=== PATIENT | female | born 1995 | race Caucasian/White ===

== ENCOUNTER → 2020-05-12 16:09 | Outpatient (BNVA) | payer BC, SELFPAY | PROVIDERS: Visit Provider Nurse Practitioner Family | DX: R30.0 Dysuria (principal) | CPT/HCPCS: 81000 ==

== ENCOUNTER → 2020-07-08 18:33 | Outpatient (BNVA) | payer BC, SELFPAY | PROVIDERS: Visit Provider Nurse Practitioner Family | DX: N89.8 Other specified noninflammatory disorders of vagina (principal) | CPT/HCPCS: 87491; 87591; 87661 ==

== ENCOUNTER → 2021-12-02 15:11 | Outpatient (BNVA) | payer BC, SELFPAY | PROVIDERS: PCP Nurse Practitioner Family; Visit Provider Nurse Practitioner | DX: N39.0 Urinary tract infection, site not specified (principal) | CPT/HCPCS: 81000 ==

== ENCOUNTER → 2024-06-06 14:20 | Outpatient (BNVA) | payer OTHER, SELFPAY | PROVIDERS: PCP Family Medicine; Visit Provider Nurse Practitioner Women's Health | DX: N91.2 Amenorrhea, unspecified (principal) | CPT/HCPCS: 81025 ==

== ENCOUNTER → 2024-06-27 08:33 | Outpatient (BNVA) | payer OTHER, SELFPAY | PROVIDERS: PCP Family Medicine; Visit Provider Nurse Practitioner Women's Health | DX: Z36.87 Encounter for antenatal screening for uncertain dates (principal); Z3A.13 13 weeks gestation of pregnancy | CPT/HCPCS: 76801; 84315; 85025 ==

== ENCOUNTER → 2024-07-20 09:34 | Outpatient (BNVA) | payer OTHER, SELFPAY | PROVIDERS: PCP Family Medicine; Visit Provider Obstetrics & Gynecology | DX: Z34.80 Encounter for supervision of other normal pregnancy, unspecified trimester (principal); Z3A.00 Weeks of gestation of pregnancy not specified | CPT/HCPCS: 84315; 87491; 87591; 87624 ==

== ENCOUNTER → 2024-08-22 15:26 | Outpatient (BNVA) | payer OTHER, SELFPAY | PROVIDERS: PCP Family Medicine; Visit Provider Obstetrics & Gynecology | DX: Z34.92 Encounter for supervision of normal pregnancy, unspecified, second trimester (principal); Z3A.20 20 weeks gestation of pregnancy | CPT/HCPCS: 76805 ==

== ENCOUNTER → 2024-09-19 08:37 | Outpatient (BNVA) | payer OTHER, SELFPAY | PROVIDERS: PCP Family Medicine; Visit Provider Obstetrics & Gynecology | DX: Z34.80 Encounter for supervision of other normal pregnancy, unspecified trimester (principal) | CPT/HCPCS: 76816; 82950; 84315; 85025; 86850; 86900 ==

== ENCOUNTER → 2024-10-12 08:14 | Outpatient (BNVA) | payer OTHER, SELFPAY | PROVIDERS: PCP Family Medicine; Visit Provider Obstetrics & Gynecology | DX: Z34.80 Encounter for supervision of other normal pregnancy, unspecified trimester (principal) | CPT/HCPCS: 82951; 82952; 84315; 85025 ==

== ENCOUNTER → 2024-10-26 08:28 | Outpatient (BNVA) | payer OTHER, SELFPAY | PROVIDERS: PCP Family Medicine; Visit Provider Obstetrics & Gynecology | DX: Z34.80 Encounter for supervision of other normal pregnancy, unspecified trimester (principal) | CPT/HCPCS: 84315 ==

== ENCOUNTER → 2024-11-09 08:44 | Outpatient (BNVA) | payer OTHER, SELFPAY | PROVIDERS: PCP Family Medicine; Visit Provider Obstetrics & Gynecology | DX: Z34.80 Encounter for supervision of other normal pregnancy, unspecified trimester (principal); Z34.90 Encounter for supervision of normal pregnancy, unspecified, unspecified trimester; R89.4 Abnormal immunological findings in specimens from other organs, systems and tissues; G43.009 Migraine without aura, not intractable, without status migrainosus | CPT/HCPCS: 84315 ==

== ENCOUNTER → 2024-11-28 12:16 | Outpatient (BNVA) | payer OTHER, SELFPAY | PROVIDERS: PCP Family Medicine; Visit Provider Nurse Practitioner Women's Health | DX: Z34.80 Encounter for supervision of other normal pregnancy, unspecified trimester (principal) | CPT/HCPCS: 76816; 84315 ==

== ENCOUNTER → 2024-12-12 07:59 | Outpatient (BNVA) | payer OTHER, SELFPAY | PROVIDERS: PCP Family Medicine; Visit Provider Nurse Practitioner Women's Health | DX: Z34.80 Encounter for supervision of other normal pregnancy, unspecified trimester (principal) | CPT/HCPCS: 84315; 87081 ==

== ENCOUNTER 2024-12-19 09:00 | Outpatient (CLI) | payer OTHER, SELFPAY | END 2024-12-19 10:00 | disposition home or self-care (01) | LOC: OPS 01-24 16:54 | PROVIDERS: PCP Family Medicine; Visit Provider Obstetrics & Gynecology | DX: Z34.80 Encounter for supervision of other normal pregnancy, unspecified trimester (principal) | CPT/HCPCS: 84315 ==

== ENCOUNTER → 2024-12-26 07:53 | Outpatient (BNVA) | payer OTHER, SELFPAY | PROVIDERS: PCP Family Medicine; Visit Provider Nurse Practitioner Women's Health | DX: Z34.80 Encounter for supervision of other normal pregnancy, unspecified trimester (principal) | CPT/HCPCS: 84315 ==

== ENCOUNTER → 2025-01-02 10:53 | Outpatient (BNVA) | payer OTHER, SELFPAY | PROVIDERS: PCP Family Medicine; Visit Provider Nurse Practitioner Women's Health | DX: Z34.80 Encounter for supervision of other normal pregnancy, unspecified trimester (principal); R89.4 Abnormal immunological findings in specimens from other organs, systems and tissues; G43.009 Migraine without aura, not intractable, without status migrainosus | CPT/HCPCS: 84315 ==

== ENCOUNTER 2025-01-04 04:55 | Inpatient (IN) | payer OTHER, SELFPAY ==
[2025-01-04] VITALS (42 sets, daily range): BP systolic 95–149; BP diastolic 59–96; PULSE 76–104; RESP 15–18; TEMP 35.8–36.8; O2SAT 99–100; BMI 37.5
[2025-01-04 04:22] LABS: Nitrazine Paper, PH Positive
[2025-01-04 04:29] LABS: Basophils % 0.3 %; Eosinophils # 0.1 10^3/uL (0.0-0.8); Eosinophils % 0.6 %; Hematocrit 37.7 % (36-47); Lymphocytes % 19.6 %; Mean Corpuscular HGB Conc 32.9 g/dL (30-55); Mean Corpuscular Hemoglobin 27.5 pg (27-33); Mean Corpuscular Volume 83.6 fl (85-98); Mean Platelet Volume 9.5 fL (7.4-10.4); Monocytes # 0.9 10^3/uL (0.2-0.9); Neutrophils # 11.15 10^3/uL (1.8-7.7); Neutrophils % 72.4 %; Nucleated Red Blood Cells % 0 %; Platelet Count 398 10^3/cmm (157-399); Red Blood Count 4.51 10^6/uL (3.85-5.65); Red Cell Distribution Width 12.8 % (12.1-15.1); White Blood Count 15.39 10^3/uL (3.29-11.43)
--- NOTE | 2025-01-04 09:26 | P.HPUD_ITS ---
Labor & Delivery H&P Update Date of Procedure: January 04, 2025 Date H&P Performed: 01/02/25 Changes to previous documentation: 29-year-old female G2, P0 at 39.6 weeks gestation with GARRY 01/05/2025 by LMP. Patient presented to labor and delivery early this a.m. with complaints of leakage of fluid onset 1 AM. Patient denies painful contractions, or vaginal bleeding. Upon presentation at 330 this morning patient cervix was 1 cm / 20%/- 4 with gross fluid noted. record has been reviewed with an uncomplicated course. 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 She has been using acyclovir for suppressive therapy for many years. Patient also gives history of migraines without aura treated with promethazine. Her headaches have subsided before third trimester. EFM?category 1 with contractions q. 5 to 6 minutes. Cervix?Per nursing evaluation 2 cm / 70%/-2 vertex with clear fluid noted. Pelvic exam reveals no HSV lesions. Admission Diagnosis: Primary indication for procedure: Admission to labor and delivery SROM at 39.6 weeks gestation. Planned procedure: Anticipate , discussion of possible if nonreassuring monitoring occurs or other complications during labor. Patient verbalizes understanding and agrees. Related Problem List Diagnoses (1) SROM (spontaneous rupture of membranes): (2) 39 weeks gestation of : (3) Positive test for herpes simplex virus (HSV) antibody: (4) Supervision of other normal : (5) Migraine without aura:
--- NOTE | 2025-01-04 09:44 | USR_ITS ---
PROCEDURE INFORMATION: Exam: US , Limited Exam date and time: 01/04/2025 10:53 AM Age: 29 years old Clinical indication: Screening exam; Routine US, uterus; Additional info: Estimated weight, suspected large baby LABS AND CLINICAL REPORTS: Gestational age (Established): 39 w 6 d Estimated due date (Established): 01/05/2025 TECHNIQUE: Imaging protocol: Real-time ultrasound of the maternal uterus with image documentation. Exam focused on the clinical indication. COMPARISON: [place] [id number] 11/28/2024 12:27 PM FINDINGS: Gestation: Single live fetus in cephalic position. Placenta is anterior. heart rate: 139 bpm Amniotic fluid index: BISHOP is normal. 10.3 cm. BIOMETRY: Estimated weight: 3779.79 g. 65.8% percentile. Biparietal diameter (BPD): 9.55 cm. EGA (BPD) is 39 w 0 d. 69.3 % percentile Head circumference (HC): 34.23 cm. EGA (HC) is 39 w 3 d. 36.9 % percentile Abdominal circumference (AC): 35.77 cm. EGA (AC) is 39 w 5 d. 71.3 % percentile Femur length (FL): 7.62 cm. EGA (FL) is 39 w 0 d. 38.5 % percentile HC/AC: 0.96. (Normal range: 0.88 - 1.05) FL/HC: 22.26. (Normal range: 20.63 - 23.14) FL/BPD: 79.79. (Normal range: 71 - 87) FL/AC: 21.3. (Normal range: 20 - 24) MATERNAL: Cervix: Long and closed. Measures 7.2 cm. US/ OB limited [id number] IMPRESSION: 1. Single live fetus with estimated gestational age of 39 weeks and 2 days . Estimated due date of 01/09/2025 . 2. No acute abnormality.
[2025-01-04] MEDS: dextrose 5%-lactated ringers 1,000 ML 500 ML IV (09:54)
--- NOTE | 2025-01-04 12:10 | P.PN_ITS ---
DINING ROOM COORDINATOR Subjective 2 Subjective: Interval history: 29-year-old female G2, P0 at 39.6 weeks gestation with SROM. Patient's EFM reviewed with category 2 tracing. EFM is concerning due to decreased variability and several subtle decelerations. Patient is spontaneously svetlana every 7 to 8 minutes very mild, she is unsure of feeling the contractions. Discussed EFM with patient and significant other, that this is concerning. At this time we will put oxygen on the patient and see if it improves the EFM. If no improvement I would recommend delivery by section for best outcome. Patient understands. Will not augment with Pitocin at this time due to EFM, delivery may need to be by . Labor: Station: -4 Amniotic Membrane Status: Leaking Monitor Mode: External Contraction Pattern: Irregular Status: Category I Vitals/I&O/Wt Last Vital Signs Temp 97.6 F 01/04/25 10:23 Pulse 95 01/04/25 11:46 Resp 17 01/04/25 10:23 BP 119/68 01/04/25 11:46 O2 Del Method Room Air 01/04/25 08:42 01/03/25 01/04/25 01/04/25 22:59 06:59 14:59 Intake Total 500 / 500 Balance 500 / 500 Weight last 48 hrs Weight 102.512 kg Data 01/04/25 04:20 A&P Assessment and plan (1) 39 weeks gestation of : (2) SROM (spontaneous rupture of membranes): PDMP PDMP Reviewed: Not Reviewed Attestations 2 Medical Necessity Statement*: 39.6-week gestation with SROM admitted t o labor and delivery for management of labor. Coding Level of Care Code Acute Code for Chg Fwd Diagnoses 39 weeks gestation of Z3A.39 SROM (spontaneous rupture of membranes)
[2025-01-04] MEDS: dextrose 5%-lactated ringers 1,000 ML 999 ML IV (12:33)
--- NOTE | 2025-01-04 14:10 | PM.OBGYPN ---
CLINICAL DATA MANAGEMENT DIRECTOR Subjective Subjective: Interval history: 29-year-old female G2, P0 at 39 weeks gestation admitted to labor and delivery after SROM. EFM has been category 1 with some episodes of category 2 tracings. Patient was recently put on oxygen to see if it would improve the tracing. Moderate accelerations resulted with much improvement in the tracing. This was discussed with patient as well as attempting a trial of Pitocin to increase contractions intensity and frequency. If not tolerated will discontinue the Pitocin and delivered baby by . Patient understands and agrees. Noticed the patient was off EFM, as I entered the room patient was ambulating and taking a break from monitoring. Explained to patient that with EFM being of great concern earlier that I would recommend that she stays on the monitor so that we can follow baby closely. Patient understands. Labor: Station: -4 Amniotic Membrane Status: Leaking Monitor Mode: Palpation Contraction Pattern: Irregular Status: Category I Vitals/I&O/Wt Last Vital Signs Temp 97.6 F 01/04/25 10:23 Pulse 96 01/04/25 13:13 Resp 17 01/04/25 10:23 BP 117/73 01/04/25 13:13 O2 Del Method Room Air 01/04/25 08:42 01/03/25 01/04/25 01/04/25 22:59 06:59 14:59 Intake Total 1016.650 / 1016.650 Balance 1016.650 / 1016.650 Weight last 48 hrs Weight 102.512 kg Data 01/04/25 04:20 A&P Assessment and plan (1) 39 weeks gestation of : (2) SROM (spontaneous rupture of membranes): (3) Supervision of other normal : (4) Positive test for herpes simplex virus (HSV) antibody: PDMP PDMP Reviewed: Not Reviewed Attestations Medical Necessity Statement*: Admitted to labor and delivery with SROM at 39.6 weeks for management of labor Coding Level of Care Code Acute Code for Chg Fwd Diagnoses 39 weeks gestation of Z3A.39 SROM (spontaneous rupture of membranes) Supervision of other normal Z34.80 Positive test for herpes simplex virus (HSV) antibody R89.4
[2025-01-04] MEDS: oxytocin 30 UNIT/500 ML BAG IV (14:15)
[2025-01-04] MEDS: lactated ringers 1,000 ML 999 ML IV (15:35)
--- NOTE | 2025-01-04 15:35 | P.PN_ITS ---
DIRECTOR OF EPIDEMIOLOGY Subjective 2 Subjective: Interval history: 29-year-old female G2, P0 at 39.6 weeks gestation with SROM has been followed through early labor. Patient has progressed from 1 to 2 cm / 70%/-1 vertex with clear fluid noted. Patient's EFM has been concerning with decreased variability. Reviewed with patient concern of EFM and recommend delivery by section. Patient discussed this with and agrees to proceed. Risk of bleeding, infection, anesthesia risk and benefits of surgery discussed and patient verbalizes understanding. Risk the wellbeing decreases if a is not performed also reviewed with good patient understanding. Nursing staff is present and will summon staff to proceed with . Labor: Station: -4 Amniotic Membrane Status: Leaking Monitor Mode: Palpation Contraction Pattern: Irregular Status: Category I Vitals/I&O/Wt Last Vital Signs Temp 97.0 F L 01/04/25 14:05 Pulse 91 01/04/25 15:13 Resp 16 01/04/25 14:05 BP 130/76 01/04/25 15:13 O2 Del Method Room Air 01/04/25 08:42 01/04/25 01/04/25 01/04/25 06:59 14:59 22:59 Intake Total 1017.150 / 1017.150 Balance 1017.150 / 1017.150 Weight last 48 hrs Weight 102.512 kg Data 01/04/25 04:20 A&P PDMP PDMP Reviewed: Not Reviewed Attestations 2 Medical Necessity Statement*: Admission to labor and delivery at 39.6 weeks gestation with SROM, for management of labor. Coding Level of Care Code Acute Code for Chg Aileen
[2025-01-04] MEDS: metoclopramide 5 mg/mL SDV 2 mL 10 MG IVP (15:50)
[2025-01-04] MEDS: ceFAZolin 2,000 mg SDV 2000 MG IVP (15:50)
[2025-01-04] MEDS: famotidine 20 mg/2 mL INJ IVP (15:50)
--- NOTE | 2025-01-04 16:42 | P.ANESASSM_ITS ---
Pre-Anesthetic Assessment Height/Weight: Height 5 ft 5 in Weight 226 lb Temp Pulse Resp BP O2 Del Method 97.0 F L 86 16 149/65 Room Air 01/04/25 14:05 01/04/25 15:59 01/04/25 14:05 01/04/25 15:59 01/04/25 08:42 Anesthetic Plan ASA status: 3E Anesthesia: Regional (specify below) Other: No prior issues with anesthesia NPO since this a.m. around 7. Had some Jell-O G1, P0 with no issues during Baby is currently having heart D cells, requiring emergent Labs reviewed and acceptable for procedure History of GERD during , diet controlled Possible sleep apnea, no treatment METs greater than 4 Plan for with spinal anesthetic Medications/Allergies Home Medications ?Medication ?Instructions ?Recorded ?Confirmed ?Last Taken ?Type acetaminophen 650 mg 650 mg PO ONCE PRN Pain, Mil d 06/06/24 01/04/25 Unknown History tablet,extended release (Tylenol 8 Hour) cetirizine 10 mg capsule (All Day 10 mg PO DAILY PRN P ain 06/06/24 01/04/25 Unknown History Allergy (cetirizine)) promethazine 25 mg tablet 25 mg PO Q6H PRN headache #6 0 tabs 06/06/24 01/04/25 Unknown Rx acyclovir 400 mg tablet 400 mg PO BID #60 tabs 09/1901/04/25 Unknown Rx breast pump #1 ea 09/19/24 12/19/24 Unkn own Rx vitamin#30 30 mg iron-10 1 cap PO DAILY 12/1201/04/25 Unknown History mg iron-folic acid 1 mg-omg3 capsule Allergies Allergy/AdvReac Type Severity Reaction Status Date / Time sulfamethoxazole (From Allergy Mild ALGY-Rash Verified 01/04/25 05:33 Bactrim) trimethoprim (From Bactrim) Allergy Mild ALGY-Rash Verified 01/04/25 05:33 Current Medications Generic Name Dose Route Start Last Admin Trade Name Freq PRN Reason Stop Dose Admin Dextrose/Lactated Ringer's 1,000 mls @ 125 mls/hr 01/04/25 04:30 01/04/25 15:35 Dextrose 5%-Lactated Ringers IV Infused .Q8H LIZA Infusion Oxytocin 30 unit in 500 mls @ 1 mls/hr 01/04/25 13:30 01/04/25 14:45 Pitocin IV 2 milliunit/min .Q24H LIZA 2 mls/hr Protocol Titration 1 MILLIUNIT/MIN Lactated Ringer's 1,000 mls @ 999 mls/hr 01/04/25 15:24 01/04/25 15:35 Lactated Ringers IV 999 mls/hr .Q1H1M PRN Administration Per L&D Rescitation Protocol [facility] Anesthesia Medical History No pertinent past medical history neghx:HTN,DM,thyroid, dvt/pe PCP: [place] Surgical History No pertinent past surgical history Family History Mother Diabetes Grandmother Diabetes Hyperlipidemia Hypertension Stroke Denies family history of Colon cancer Ovarian cancer Prostate cancer Depression Breast cancer Uterine cancer Thyroid disease Social History Smoking and tobacco/nicotine status: never used tobacco/nicotine Alcohol intake: current Female Reproductive History : 1 Data Anesthesia 01/04/25 04:20 Short CBC 01/04/25 Range/Units 04:20 WBC 15.39 H (3.29-11.43) 10^3/uL Hgb 12.40 (11.27-16.99) g/dL Hct 37.7 (36-47) % MCV 83.6 L (85-98) fl Plt Count 398 (157-399) 10^3/cmm Neut % (Auto) 72.4 % Neut # (Auto) 11.15 H (1.8-7.7) 10^3/uL Blood Bank 01/04/25 01/04/25 04:20 04:53 Blood Type Cancelled B Positive Rho(D) Type Cancelled Rh positive Antibody Screen Cancelled Negative
--- NOTE | 2025-01-04 17:22 | P.PCNOB_ITS ---
Delivery Note: Date of delivery: January 04, 2025 Pre-delivery diagnoses: 39.6 weeks intrauterine gestation SROM Nonreassuring monitoring History of HSV 2 (no lesions) History of migraine without aura Post-delivery diagnoses: S/p primary viable baby girl Apgars 8/9 weight 8 pounds 5 ounces Procedure: Primary low-transverse section Op report anesthesia: Spinal Delivering Physician: Yesi Soler DO Estimated blood loss (mL): 500 Findings: Viable baby girl Post Delivery Diagnoses: Migraine without aura: Qualifiers: Status migrainosus presence: without status migrainosus Intractability: not intractable Qualified Code(s): G43.009 - Migraine without aura, not intractable, without status migrainosus Delivery: 29-year-old female G2, P0 at 39.6 weeks gestation delivered by primary low- transverse section after nonreassuring monitoring. Consents were signed and patient prepared for surgery. Patient was transported to surgical suite placed in the sitting position where spinal anesthesia was placed without difficulty. Patient was repositioned in the supine position with a left lateral tilt. Lee catheter was placed in the bladder for drainage during the procedure and the abdomen prepped and draped in the standard fashion. A Pfannenstiel incision was made through the skin and extended to the fascia. The fascia was incised and the incision lateralized. The rectus muscle entered in the midline and the peritoneum opened bluntly. A bladder flap was created and displaced. A bladder blade was then placed to protect the bladder a low transverse uterine incision was made with a knife and extended laterally. The baby's vertex was elevated through the incision and delivered with spontaneous cry noted the anterior followed by the posterior shoulders delivered with the remainder of the baby's body to follow. The umbilical cord was clamped and cut and the baby handed off to waiting business machines teacher (Dr. Becker) venous blood was drawn and handed off for pH. The arterial sources were very faint with no blood being retrieved. Cord blood was then drawn and handed off as well. The placenta was manually removed and handed off. The uterus was exteriorized wiped clean with a moist lap sponge a bladder blade placed in the uterine incision closed with 0 Vicryl in a running interlocking stitch. With good hemostasis obtained the incision was inspected. The posterior cul-de-sac and sidewalls were wiped clean with a moist lap sponge. The uterus was replaced into the abdomen and the peritoneum and rectus muscle approximated with 2-0 Vicryl. The fascia was closed with 0 Vicryl in a running stitch with good approximation. The subcu fat was then approximated with 2-0 Vicryl and the skin closed with 4-0 Vicryl in a running stitch. The incision was cleansed and a pressure dressing applied. The uterus and vaginal vault expressed and cleansed. Patient is awakened in stable and satisfactory condition EBL 500 anesthesia?spinal complications?none venous pH?7.396 weight 8 pounds 5 8/9... Post-Delivery Status: Stable History History History 2 Term 1 0 Miscarriages/Ectopic 1 Living Children 1 Past Pregnancies Del. Date GA/Weeks Outcome Route Wt Inf Gender Labor Lgth Comp. Anesth esia Location 01/04/25 39 live - full term 3.77 kg Female regional A&P Assessment and plan (1) Delivery by section: Began /postoperative care. (2) 39 weeks gestation of : (3) SROM (spontaneous rupture of membranes): (4) Migraine without aura: (5) Supervision of other normal : (6) Positive test for herpes simplex virus (HSV) antibody: PDMP PDMP Reviewed: Not Reviewed Coding Level of Care Code Acute Code for Chg Fwd Diagnoses Delivery by section 39 weeks gestation of Z3A.39 SROM (spontaneous rupture of membranes) Migraine without aura and without status migrainosus, not intractable G43.009 Status migrainosus presence: without status migrainosus Intractability: not intractable Supervision of other normal Z34.80 Positive test for herpes simplex virus (HSV) antibody R89.4
[2025-01-04] MEDS: ketorolac 30 mg/mL INJ IVP (18:18)
[2025-01-04] MEDS: ondansetron 2 mg/ML SDV 2 mL 4 MG IVP (21:12)
[2025-01-04] MEDS: HYDROcodone-acetaminophen 5-325 mg Tablet PO (21:12)
[2025-01-04] MEDS: docusate sodium 100 mg Capsule PO (21:25)
[2025-01-05] MEDS: ketorolac 30 mg/mL INJ IVP ×2 (00:02→06:14)
[2025-01-05 01:30] VITALS: BP 134/86; PULSE 85; RESP 18
[2025-01-05] MEDS: HYDROcodone-acetaminophen 5-325 mg Tablet PO ×3 (02:10→20:46)
[2025-01-05 04:30] VITALS: BP 127/79; PULSE 78; RESP 18; TEMP 37.1
[2025-01-05 05:16] LABS: Mean Corpuscular HGB Conc 32.4 g/dL (30-55); Mean Corpuscular Hemoglobin 27.7 pg (27-33); Mean Corpuscular Volume 85.5 fl (85-98); Mean Platelet Volume 9.7 fL (7.4-10.4); Platelet Count 390 10^3/cmm (157-399); Red Blood Count 3.86 10^6/uL (3.85-5.65); Red Cell Distribution Width 12.9 % (12.1-15.1); White Blood Count 16.05 10^3/uL (3.29-11.43)
[2025-01-05] MEDS: docusate sodium 100 mg Capsule PO (09:51)
[2025-01-05] MEDS: ferrous sulfate EC 325 mg Tablet PO (09:51)
[2025-01-05] MEDS: ondansetron 2 mg/ML SDV 2 mL 4 MG IVP (09:51)
[2025-01-05 10:14] VITALS: BP 134/74; PULSE 74; RESP 16; TEMP 36.7
--- NOTE | 2025-01-05 11:58 | PM.OBGYPN ---
ASSOCIATE PROFESSOR OF ENGLISH Subjective Subjective: Interval history: 29-year-old female G1, P1 s/p primary low-transverse section for nonreassuring monitoring. Patient had been admitted at 39.6 weeks for SROM in early labor. Patient is doing well postoperatively, she denies headaches, dizziness, shortness of breath or chest pain. She is tolerating a regular diet, voiding and ambulating in the room. Postoperative expectations were reviewed. High-fiber diet and hallway ambulation encouraged. VSS, afebrile Labor: Station: -4 Amniotic Membrane Status: Leaking Monitor Mode: Palpation Contraction Pattern: Irregular Status: Category I Vitals/I&O/Wt Last Vital Signs Temp 98.0 F 01/05/25 10:14 Pulse 74 01/05/25 10:14 Resp 16 01/05/25 10:14 BP 134/74 01/05/25 10:14 Pulse Ox 100 01/04/25 17:45 O2 Del Method Room Air 01/05/25 01:30 01/04/25 01/05/25 01/05/25 22:59 06:59 14:59 Intake Total 2377.083 / 3394.233 Output Total 1999 900 / 2900 Balance 377.083 / 1394.233 -900 / 494.233 Weight last 48 hrs Weight 102.512 kg Physical Exam Const: COMMON NORMALS: patient oriented x3 Back/Pelvis: OTHER: Abdomen?soft, positive bowel sounds Incision clean dry and intact bandage removed. Lochia light rubra Extremity: COMMON NORMALS: normal to inspection and no clubbing, cyanosis or edema Neuro: COMMON NORMALS: patient oriented x3, CN's II-XII intact bilaterally, moves all extremities and deep tendon reflexes 2+ bilaterally Urinary Catheter Management: Lee Latex Free: Cath Placed During This Visit: yes, but has since been removed by the nurse Reason for Continuing Indwelling Catheter: Decision to DC Catheter Urinary Catheter Date of Insertion: 01/04/25 Urinary Catheter Time of Insertion: 16:13 Date Urinary Catheter Removed: 01/05/25 Time Urinary Catheter Discontinued: 06:14 Data 01/05/25 04:35 A&P Assessment and plan (1) SROM (spontaneous rupture of membranes): (2) 39 weeks gestation of : (3) Delivery by section: Postop day #1 status post primary low-transverse section (4) Supervision of other normal : (5) Migraine without aura: (6) Positive test for herpes simplex virus (HSV) antibody: (7) Anemia: Hemoglobin 10.7/hematocrit 33 Asymptomatic PDMP PDMP Reviewed: Not Reviewed Attestations Medical Necessity Statement*: Patient mended to labor and delivery at 39.6 weeks with spontaneous rupture membranes for management of labor. Patient is now postop day #1 primary low-transverse section for nonreassuring monitoring. Will continue postoperative/ care. Coding Level of Care Code Acute Code for Chg Fwd Diagnoses SROM (spontaneous rupture of membranes) 39 weeks gestation of Z3A.39 Delivery by section Supervision of other normal Z34.80 Migraine without aura and without status migrainosus, not intractable G43.009 Status migrainosus presence: without status migrainosus Intractability: not intractable Positive test for herpes simplex virus (HSV) antibody R89.4 Anemia D64.9
[2025-01-05 15:24] VITALS: BP 138/83; PULSE 101; RESP 18; TEMP 36.8
[2025-01-05] MEDS: ibuprofen 800 mg tablet PO (20:48)
[2025-01-05 23:06] VITALS: BP 128/81; PULSE 80; RESP 16; TEMP 36.7; O2SAT 98
[2025-01-06] MEDS: HYDROcodone-acetaminophen 5-325 mg Tablet PO ×3 (02:52→12:48)
[2025-01-06 03:50] VITALS: BP 126/72; PULSE 77; RESP 17; TEMP 36.6; O2SAT 99
[2025-01-06] MEDS: ibuprofen 800 mg tablet PO (07:48)
[2025-01-06] MEDS: docusate sodium 100 mg Capsule PO (07:49)
[2025-01-06 10:03] VITALS: BP 116/84; PULSE 80; RESP 16; TEMP 36.7
--- NOTE | 2025-01-06 10:18 | PM.OBGYDC ---
Discharge Providers [facility] Date of Admission: 01/04/25 04:55 Date of Discharge: 01/06/25 Attending Provider at Admission: Yesi Soler DO Attending Provider at Discharge: Yesi Soler DO Primary [facility]ILDR[facility]: Dr. Vladimir Colbert Primary Care Provider: Valente Morrell MD Diagnoses at Discharge Discharge Diagnosis (1) SROM (spontaneous rupture of membranes): Details from hospital stay: 29-year-old female G2, P1 s/p primary low-transverse section for nonreassuring monitoring on 01/04/2025. Patient was initially admitted for SROM at 39.6 weeks gestation. EFM showed long periods of decreased variability and episodes of subtle lates. stay has been uneventful, patient has tolerated regular diet, voided and has passed flatus. She is ambulating in her room and in the hallway without difficulty. Patient is breast-feeding, and nursing staff has helped with information. Patient has been counseled on postoperative care to include a high-fiber diet, ambulation, increase fluids. Patient is encouraged to shower only keeping incision clean and dry. Patient has been advised to return to the emergency room if her incision has bleeding, swelling or if she has excessive vaginal bleeding. Patient verbalizes understanding Patient has been counseled against sexual intercourse x 6 weeks, to allow uterus to heal as well as her skin incision care. Status: Acute (2) 39 weeks gestation of : Status: Acute (3) Delivery by section: Status: Acute (4) Supervision of other normal : Status: Acute (5) Migraine without aura: Status: Acute Qualifiers: Status migrainosus presence: without status migrainosus Intractability: not intractable Qualified Code(s): G43.009 - Migraine without aura, not intractable, without status migrainosus (6) Positive test for herpes simplex virus (HSV) antibody: Details from hospital stay: Patient to continue her acyclovir as prescribed. Status: Acute (7) Anemia: Details from hospital stay: Patient to continue vitamins and iron Status: Acute Reason for Visit Reason for Visit: Poss SROM Hospital Course Hospital Course See above Information Peripartum Data: Infant Delivery Method: Physical Exam Cardio: COMMON NORMALS: regular rate, regular rhythm and No murmurs present (Cardio) RATE: regular rate RHYTHM: regular rhythm Back/Pelvis: OTHER: Abdomen?soft, bowel sounds throughout all quadrants. Incision?clean dry and intact Lochia?light rubra Extremity: COMMON NORMALS: normal to inspection, no clubbing, cyanosis or edema and no calf tenderness Urinary Catheter Management: Lee Latex Free: Cath Placed During This Visit: yes, but has since been removed by the nurse Reason for Continuing Indwelling Catheter: Decision to DC Catheter Urinary Catheter Date of Insertion: 01/04/25 Urinary Catheter Time of Insertion: 16:13 Date Urinary Catheter Removed: 01/05/25 Time Urinary Catheter Discontinued: 06:14 History History History 2 Term 1 0 Miscarriages/Ectopic 1 Living Children 1 Past Pregnancies Del. Date GA/Weeks Outcome Route Wt Inf Gender Labor Lgth Comp. Anesthesia Location 01/04/25 39 live - full term 3.77 kg Female regional Discharge Data Studies Completed and Pending Completed Studies During Hospitalization Category Date Time Status US OB limited [id number] Stat Ultrasound 01/04/25 09:44 Completed Pending at discharge Category Date Time Status High Risk PP Hemorrhage Stat Lab 01/04/25 04:53 Received Radiology Impressions Obstetrics Ultrasound 01/04/25 09:44 IMPRESSION: 1. Single live fetus with estimated gestational age of 39 weeks and 2 days . Estimated due date of 01/09/2025 . 2. No acute abnormality. Laboratory Results WBC 16.05 10^3/uL (3.29-11.43) H 01/05/25 04:35 RBC 3.86 10^6/uL (3.85-5.65) 01/05/25 04:35 Hgb 10.70 g/dL (11.27-16.99) L 01/05/25 04:35 Hct 33.0 % (36-47) L 01/05/25 04:35 MCV 85.5 fl (85-98) 01/05/25 04:35 MCH 27.7 pg (27-33) 01/05/25 04:35 MCHC 32.4 g/dL (30-55) 01/05/25 04:35 RDW 12.9 % (12.1-15.1) 01/05/25 04:35 Plt Count 390 10^3/cmm (157-399) 01/05/25 04:35 MPV 9.7 fL (7.4-10.4) 01/05/25 04:35 Neut % (Auto) 72.4 % 01/04/25 04:20 Lymph % (Auto) 19.6 % 01/04/25 04:20 Otero % (Auto) 6.0 % 01/04/25 04:20 Eos % (Auto) 0.6 % 01/04/25 04:20 Baso % (Auto) 0.3 % 01/04/25 04:20 Neut # (Auto) 11.15 10^3/uL (1.8-7.7) H 01/04/25 04:20 Lymph # (Auto) 3.0 10^3/uL (0.8-4.8) 01/04/25 04:20 Otero # (Auto) 0.9 10^3/uL (0.2-0.9) 01/04/25 04:20 Eos # (Auto) 0.1 10^3/uL (0.0-0.8) 01/04/25 04:20 Baso # (Auto) 0.0 10^3/uL (0.0-0.1) 01/04/25 04:20 Nucleated RBC % (auto) 0 % 01/04/25 04:20 Nucleated RBCs # 0.0 /100WBC 01/04/25 04:20 Fluid pH (paper) Positive H 01/04/25 03:39 Blood Type B Positive 01/04/25 04:53 Rho(D) Type Rh positive 01/04/25 04:53 Antibody Screen Negative 01/04/25 04:53 Vitals Last Vital Signs Temp 98.0 F 01/06/25 10:03 Pulse 80 01/06/25 10:03 Resp 16 01/06/25 10:03 BP 116/84 01/06/25 10:03 Pulse Ox 99 01/06/25 03:50 O2 Del Method Room Air 01/06/25 03:50 Results Labs OB ([facility]): Obstetrics US 01/04/25 Blood Type B Positive 01/04/25 Antibody Screen Negative 01/04/25 Hct, (36-47) 33.0 % L 01/05/25 Hgb, (11.27-16.99) 10.70 g/dL L 01/05/25 Rho(D) Type Rh positive 01/04/25 Plt Count, (157-399) 390 10^3/cmm 01/05/25 C.trachomatis RNA (TMA), (NOT DETECTED) Not detected 07/20/24 N.gonorrhoeae RNA (TMA), (NOT DETECTED) Not detected 07/20/24 T. vaginalis Amp RNA, (NOT DETECTED) Not detected 07/20/24 Chlamydia/GC Comment See note 07/20/24 Glucose 1 Hr 50 gm, (85-140) 161 mg/dL H 09/19/24 Gest Glucose Tolerance mg/dL 10/12/24 HCG, Qual, (Negative) Positive H 06/06/24 Pap Smear Interpret See note 07/20/24 Discharge Plan Discharge Patient Disposition: Home Condition: Stable Prescriptions: Continued All Day Allergy (cetirizine) 10 mg capsule 10 mg PO DAILY PRN (Reason: Pain) acetaminophen [Tylenol 8 Hour] 650 mg tablet extended release 650 mg PO ONCE PRN (Reason: Pain, Mild) promethazine 25 mg tablet 25 mg PO Q6H PRN (Reason: headache) Qty: 60 0RF acyclovir 400 mg tablet 400 mg PO BID Qty: 60 6RF (DME) breast pump Device See Rx Instructions .ROUTE .MEDSUPPLY Qty: 1 0RF Rx Instructions: As directed PNV #[id number] 30 mg iron-10 mg iron-1 mg capsule 1 cap PO DAILY Discharge Orders: Discharge Order (Routine); Ordered 01/06/25 Ordered By: Yesi Soler Discharge Diet: Regular Discharge Activity: Increase activity as tolerated Patient Instructions: Opioid Safety Activity Restrictions/Additional Instructions: No strenuous activity No sexual intercourse x 6 weeks Patient's Health Concerns: S/p primary low-transverse section Assessment: 1. S/p primary low-transverse section with delivery of a viable male 2. Asymptomatic anemia Plan of Treatment: Discharge patient to home to continue recovery Follow-up 2 weeks for /postoperative evaluation. Discharge Attestations [facility] Time Spent in Discharge Care*: less than 30 min Coding Level of Care Code Acute Code for Chg Fwd Diagnoses SROM (spontaneous rupture of membranes) 39 weeks gestation of Z3A.39 Delivery by section Supervision of other normal Z34.80 Migraine without aura and without status migrainosus, not intractable G43.009 Status migrainosus presence: without status migrainosus Intractability: not intractable Positive test for herpes simplex virus (HSV) antibody R89.4 Anemia D64.9
[2025-01-06 14:10] VITALS: BP 137/85; PULSE 89; RESP 16; TEMP 36.8; O2SAT 98
[2025-01-07 10:19] LABS: High Risk PP Hemorrhage BBK Notified
== END 2025-01-06 14:10 | disposition home or self-care (01) | DRG 787 ==
LOC: OPOB 04:55 → OBGYN 04:55
PROVIDERS: Admitting Provider Obstetrics & Gynecology; PCP Family Medicine; Visit Provider Obstetrics & Gynecology
PROC: 10D00Z1 Extraction of Products of Conception, Low, Open Approach (ICD-10-PCS; CPT 59514; principal; 2025-01-04 16:00)
DX: O76 Abnormality in fetal heart rate and rhythm complicating labor and delivery (principal); O98.52 Other viral diseases complicating childbirth; O99.354 Diseases of the nervous system complicating childbirth; Z3A.39 39 weeks gestation of pregnancy; Z37.0 Single live birth; G43.009 Migraine without aura, not intractable, without status migrainosus; O90.81 Anemia of the puerperium; D64.9 Anemia, unspecified; B00.9 Herpesviral infection, unspecified; Z79.899 Other long term (current) drug therapy
CPT/HCPCS: 36415; 51702; 59025; 59409; 76815; 83986; 85025; 85027; 86850; 86900; 96374; 99211; J0690; J1885; J2274; J2371; J2405; J2590; J2765; J3010; J3490; J7030; J7120; J7121; J9999

== ENCOUNTER → 2025-01-10 11:02 | Outpatient (BNVA) | payer OTHER, SELFPAY | PROVIDERS: PCP Family Medicine; Visit Provider Obstetrics & Gynecology | DX: R30.0 Dysuria (principal) | CPT/HCPCS: 84315 ==